=== PATIENT | male | born 1960 ===

== ENCOUNTER 2019-05-01 12:34 | Emergency (ER) | payer MEDICAID, OTHER ==
[~2019-05-01] VITALS: Ht 180.3 cm; Wt 84.0 kg
[2019-05-01] MEDS ORDERED: ACET-2178 PO (13:19)
[2019-05-01] MEDS ORDERED: KETOROLAC 30MG/ML VIAL IM ONE (21:45)
[2019-05-01 22:45] VITALS: BP 149/85
== END 2019-05-01 22:50 | disposition home or self-care (01) ==
LOC: ER 12:34
DX: S93.401A Sprain of unspecified ligament of right ankle, initial encounter (principal); S93.601A Unspecified sprain of right foot, initial encounter; F17.200 Nicotine dependence, unspecified, uncomplicated; Z79.899 Other long term (current) drug therapy; V87.8XXA Person injured in other specified noncollision transport accidents involving motor vehicle (traffic), initial encounter; Y93.89 Activity, other specified; Y92.89 Other specified places as the place of occurrence of the external cause; Y99.8 Other external cause status
CPT/HCPCS: 73610; 73630; 96372; 99283; J1885; Z7610